=== PATIENT | female | born 1985 | race Two or more races ===

== ENCOUNTER 2021-10-29 07:26 | Emergency (ER) | payer OTHER ==
[~2021-10-29] VITALS: Ht 162.6 cm; Wt 101.3 kg
[2021-10-29 09:06] VITALS: BP 103/66
== END 2021-10-29 09:00 | disposition short-term general hospital (02) ==
LOC: EMS 07:26
DX: O26.893 Other specified pregnancy related conditions, third trimester (principal); N85.8 Other specified noninflammatory disorders of uterus; Z3A.38 38 weeks gestation of pregnancy
CPT/HCPCS: 96361; 96374; 99291; Z7502